=== PATIENT | female | born 2005 | race Caucasian/White ===

== ENCOUNTER 2024-12-19 09:54 | Outpatient (REF) | payer MEDICAID, SELFPAY ==
--- OUTSIDE RECORDS SUMMARY | 2024-12-19 09:00 | XMS_ITS | Encounter Summary ---
Author Organization [employer] [facility] Address [address] 7 [place] [address] Care Team Providers Care Motor Scooter Mechanic Name Role Phone Julisa Anne MD Primary Care Provider [phone]- [phone] Reason for Referral * Consultation (Routine) - Authorized Specialty Diagnoses / Procedures Referred By Brandin berry Referred To Contact Behavioral Health Diagnoses Anxiety Julisa Anne MD [address] [place] [address] Phone: tel: fax: Referral ID Status Reason Start Date Expiration Date Visits Requested Visits Authorized [id number] Authorized Specialty Services Required 12/19/2024 12/19/2025 1 1 * Consultation (Routine) - Authorized Specialty Diagnoses / Procedures Referred By Brandin berry Referred To Contact Optometry Diagnoses Congenital anomaly of brain (CMS/HCC) Julisa Anne MD [address] [place] [address] Phone: tel: fax: Ashly Rivera, OD [address] [place], [place] Phone: tel: fax: Referral ID Status Reason Start Date Expiration Date Visits Requested Visits Authorized [id number] Authorized Consult and Treat 12/19/2024 12/19/2025 1 1 Encounter Details Date Type Department Care Team (Late st Contact Info) Description 12/19/2024 9:00 AM EDT Office Visit [facility] [address] [place] [address] Julisa Anne MD [address] [place] [address] Hirsutism (Primary Dx); Anxiety; Congenital anomaly of brain (CMS/HCC); Encounter for immunization; Dietary counseling; Exercise counseling; Other specified health status; Seborrheic dermatitis, unspecified; Impacted cerumen of right ear; Routine screening for STI (sexually transmitted infection); Screening cholesterol level; Screening for diabetes mellitus Social History Tobacco Use Types Packs/Day Years Used Date Smoking Tobacco: Never Smokeless Tobacco: Never Tobacco Cessation:Counseling Given: Not Answered Depression Answer Date Recorded Patient Health Questionnaire-9 Score 24 12/19/2024 Patient Health Questionnaire-9 Score 24 12/19/2024 Last PHQ-9: Questionnaire Data Not on file 0 12/19/2024 Housing Stability Answer Date Recorded What is your housing situation today? I have zander smith 12/19/[address] you li ve. Do you have problems with any of the following? None of the above 12/19/2024 Food Insecurity Answer Date Recorded Within the past 12 months, y ou worried that your food would run out before you got money to buy more: Never True 12/19/2024 Within the past 12 months,th e food you bought just didn't last and you didn't have enough money to get more: Never True Transportation Answer Date Recorded In the past 12 months, has l ack of transportation kept you from medical appts, meetings, work or from getting things needed for daily living? No 12/19/2024 Utilities Answer Date Recorded In the past 12 months, has t he electric, gas, oil or water company threatened to shut off services in your home? No 12/19/2024 Depression Answer Date Recorded Patient Health Questionnaire-2 Score 6 12/19/2024 Internet Access Answer Date Recorded Internet Access Q1 Yes 12/19/2024 Internet Access Q2 Not on file 12/19/2024 Comments Unknown Intention Date Recorded No desire to become (finding) 0 12/19/2024 Sex and Gender Information Value Date Recorded Sex Assigned at Female 12/16/2023 11:54 AM EDT Legal Sex Female 11:53 AM EDT Gender Identity Female 12/12/2024 4:48 PM EDT Sexual Orientation Choose not to disclose 2024 4:48 PM EDT documented as of this encounter Last Filed Vital Signs Vital Sign Reading Time Taken Comments Blood Pressure 110/84 12/19/2024 8:55 AM EDT Pulse 115 12/19/2024 8:55 AM EDT Temperature 37.2 C (98.9 F) 12/19/2024 8:55 AM EDT Respiratory Rate 20 12/19/2024 8:55 AM EDT Oxygen Saturation 96% 12/19/2024 8:55 AM EDT Inhaled Oxygen Concentration - - Weight 78.6 kg (173 lb 3.2 oz) 12/19/2024 8:55 A M EDT Height 158.1 cm (5' 2.25 ) 12/19/2024 8:55 AM ED T Body Mass Index 31.42 12/19/2024 8:55 AM EDT documented in this encounter Functional Status * Over the past 2 weeks, how often have you been bothered by any of the following problems? Question Answer Date of Assessment Author Patient Health Questionnaire-2 Score 6 11/24 9:04 AM EANT Joy Mathew MA * Little interest or pleasure in doing things Answer Date of Assessment Author Nearly every day 12/19/2024 9:04 AM Symone Wilson MA * Feeling down, depressed, or hopeless Answer Date of Assessment Author Nearly every day 12/19/2024 9:04 AM Symone Wilson MA * Trouble falling or staying asleep, or sleeping too much Answer Date of Assessment Author Nearly every day 12/19/2024 9:04 AM Symone Wilson MA * Feeling tired or having little energy Answer Date of Assessment Author Nearly every day 12/19/2024 9:04 AM Symone Wilson MA * Poor appetite or overeating Answer Date of Assessment Author Several days 12/19/2024 9:04 AM EDT Thomas Mathew MA * Feeling bad about yourself - or that you are a failure or have let yourself or your family down Answer Date of Assessment Author Nearly every day 12/19/2024 9:04 AM Symone Wilson MA * Trouble concentrating on things, such as reading the newspaper or watching television Answer Date of Assessment Author Nearly every day 12/19/2024 9:04 AM Symone Wilson MA * Moving or speaking so slowly that other people could have noticed? Or the opposite - being so fidgety or restless that you have been moving around a lot more than usual. Answer Date of Assessment Author More than half the days 12/19/2024 9:04 AM Joy Burce MA * Thoughts that you would be better off or hurting yourself in some way Answer Date of Assessment Author Nearly every day 12/19/2024 9:04 AM Symone Wilson MA * Patient Health Questionnaire-9 Score Answer Date of Assessment Author 24 12/19/2024 9:04 AM Thomas Wilson MA * Over the last 2 weeks, how often have you been bothered by any of the following problems? Question Answer Date of Assessment Author Feeling nervous, anxious, or on edge 3 11/24 9:04 AM Joy Wilson MA Not being able to stop or co ntrol worrying 3 12/19/2024 9:04 AM Joy Wilson MA Worrying too much about diff erent things 3 12/19/2024 9:04 AM Joy Wilson MA Trouble relaxing 2 12/19/2024 9:04 AM Joy Bruce MA Being so restless that it is hard to sit still 3 12/19/2024 9:04 AM Joy Wilson MA Becoming easily annoyed or irritable 2 11/24 9:04 AM Joy Wilson MA Feeling afraid as if somethi ng awful might happen 3 12/19/2024 9:04 AM Joy Wilson MA NATALIA-7 Total Score 19 12/19/2024 9:04 AM Joy Wilson MA documented as of this encounter Progress Notes * Julisa Anne MD - 12/19/2024 9:00 AM EDT Km Busch is a 19 y.o. female who presents to the office today for a routine physical. Transferring from outside pediatrics. 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 Concerns: Facial hair: Shaves daily Anxiety: No formal dx but strong pos depression and anxiety screen, interested in prn medication and therapist Social History Tobacco: denied Drugs: none Alcohol: No Sexuality: Denies current sexual activity Activities: Enjoys Ren Potter,my Little Pipestem, Interview with a Vampire Menses: normal q month, no pain Suicide/Depression: The patient denies any present symptoms of depression or anxiety. Review of Systems Constitutional: Negative for fever. Respiratory: Negative for wheezing. Cardiovascular: Negative for chest pain. Gastrointestinal: Negative for abdominal pain. Current Medications[1] Allergies[2] Medical History[3] Surgical History[4] Family History[5] Objective Visit Vitals BP 110/84 (BP Location: Left arm, Patient Position: Sitting, BP Cuff Size: Adult) Pulse (!) 115 Temp 98.9 ??F (37.2 ??C) (Temporal) Resp 20 Ht 5' 2.25 (1.581 m) Wt 173 lb 3.2 oz (78.6 kg) SpO2 96% BMI 31.42 kg/m?? Smoking Status Never BSA 1.86 m?? Physical Exam Constitutional: Appearance: Normal appearance. HENT: Right Ear: There is impacted cerumen. Left Ear: Tympanic membrane normal. Cardiovascular: Rate and Rhythm: Normal rate and regular rhythm. Heart sounds: Normal heart sounds. Pulmonary: Effort: Pulmonary effort is normal. Breath sounds: Normal breath sounds. Abdominal: Tenderness: There is no abdominal tenderness. Musculoskeletal: Cervical back: Normal range of motion and neck supple. Skin: Comments: Erythematous plaque over right eye, flaky skin on scalp and forehead. Neurological: General: No focal deficit present. Mental Status: She is alert. Psychiatric: Behavior: Behavior normal. 19 y.o. female physical exam. Assessment & Plan Hirsutism Normal menses, no indication for pelvic US, will check labs below. Discussed electrolysis and laseras options. Consider spironolactone after labs. Orders: Testosterone, Total, males (Adult), IA; Future DHEA Sulfate; Future Anxiety Referral to N, prn hydroxyzine Orders: Referral to Behavioral Health; Future hydrOXYzine HCl (Atarax) 25 MG tablet; Take 1 tablet (25 mg) by mouth if needed in the morning, at noon, and at bedtime for itching. Congenital anomaly of brain (CMS/HCC) Orders: TSH with Reflex to Free T4; Future CBC auto differential; Future Vitamin D, 25-Hydroxy, Total, Immunoassay; Future Referral to [facility] Eye Care (Developmental Disability Exam); Future Encounter for immunization Orders: TDAP VACCINE 7 yrs + Dietary counseling Dietary Recommendations: Fruits, vegetables, whole grains, protein foods, and fat-free or low-fat dairy products are healthychoices. Eat different types of protein foods in your diet. This can include seafood, lean meats, poultry, beans, peas, lentils, nuts, seeds, soy products, and eggs. Limit foods and beverages higher in added sugars, saturated fat, and sodium. Exercise Recommendations: At least 150 minutes of moderate-intensity physical activity per week, or an equivalent combinationof moderate- and vigorous-intensity activity Exercise counseling Other specified health status -next comprehensive annual evaluation due after 12/19/25 -eye care facilitated by [facility] -[facility] -mercedes care proxy filed Seborrheic dermatitis, unspecified Trial of selenium sulfide shampoo OTC Impacted cerumen of right ear Will try debrox gtt Orders: carbamide peroxide (Debrox) 6.5 % otic solution; Administer 5-10 drops into affected ear(s) 2 timesdaily for 4 days. Routine screening for STI (sexually transmitted infection) Orders: Chlamydia/N. Gonorrhoeae, PCR, Urine HIV-1/2 Antigen and Antibodies, Fourth Generation, with Reflexes; Future Hepatitis C Antibody with Reflex to HCV, RNA, Quantitative, Real-Time PCR; Future Screening cholesterol level Orders: Hepatic Function Panel; Future Lipid Panel, Standard; Future Screening for diabetes mellitus Orders: Basic Metabolic Panel; Future Physical exam -Normal growth and development. -Anticipatory guidance discussed. -Preventative care / harm reduction discussed. Follow up in about 2 months (around 02/18/2025). [1] Current Outpatient Medications: carbamide peroxide (Debrox) 6.5 % otic solution, Administer 5-10 drops into affected ear(s) 2 timesdaily for 4 days., Disp: 30 mL, Rfl: 0 hydrOXYzine HCl (Atarax) 25 MG tablet, Take 1 tablet (25 mg) by mouth if needed in the morning, at noon, and at bedtime for itching., Disp: 90 tablet, Rfl: 0 [2] No Known Allergies [3] Past Medical History: Diagnosis Date ADD (attention deficit disorder) [4] Past Surgical History: Procedure Laterality Date CSF SHUNT age 6 months x 2 for extenral hydrocephalus [5] Family History Problem Relation Name Age of Onset Diabetes Mother Hypertension Mother documented in this encounter Miscellaneous Notes * Assessment & Plan Note - Julisa Anne MD - 12/19/2024 9:00 AM EDT Associated Problem(s): Congenital anomaly of brain (CMS/HCC) Orders: TSH with Reflex to Free T4; Future CBC auto differential; Future Vitamin D, 25-Hydroxy, Total, Immunoassay; Future Referral to [facility] Eye Care (Developmental Disability Exam); Future * Assessment & Plan Note - Julisa Anne MD - 12/19/2024 9:00 AM EDT Associated Problem(s): Other specified health status -next comprehensive annual evaluation due after 12/19/25 -eye care facilitated by [facility] -dental home is [facility] -mercedes care proxy filed * Addendum Note - Julisa Anne MD - 12/19/2024 9:00 AM EDTAddended by: JULISA ANNE on: 12/19/2024 09:45 AM Modules accepted: Orders documented in this encounter Plan of Treatment Upcoming Encounters Date Type Department Care Team (Late st Contact Info) Description 02/20/2025 10:15 AM EDT Office Visit [facility] [address] [place] [id number] Julisa Anne MD [address] [place] [address] Scheduled Orders Name Type Priority Associated Diagnoses Orde r Schedule Hepatic Function Panel Lab Routine Screening cholesterol level Expected: 12/19/2024, Expires: 12/19/2025 Lipid Panel, Standard Lab Routine Screening cholesterol level Expected: 12/19/2024, Expires: 12/19/2025 Basic Metabolic Panel Lab Routine Screening for diabetes mellitus Expected: 12/19/2024, Expires: 12/19/2025 TSH with Reflex to Free T4 Lab Routine Congenital anomaly of brain ([facility]/HCC) Expected: 12/19/2024 (Approximate), Expires: 12/19/2025 CBC auto differential Lab Routine Congenital anomaly of brain ([facility]) Expected: 12/19/2024, Expires: 12/19/2025 Vitamin D, 25-Hydroxy, Total, Immunoassay Lab Routine Congenital anomaly of brain ([facility]) Expected: 12/19/2024 (Approximate), Expires: 12/19/2025 HIV-1/2 Antigen and Antibodies, Fourth Generation, with Reflexes Lab Routine Routine screening for STI (sexually transmitted infection) Expected: 12/19/2024 (Approximate), Expires: 12/19/2025 Hepatitis C Antibody with Reflex to HCV, RNA, Quantitative, Real-Time PCR Lab Routine Routine screening for STI (sexually transmitted infection) Expected: 12/19/2024 (Approximate), Expires: 12/19/2025 Testosterone, Total, males (Adult), IA Lab Routine Hirsutism Expected: 12/19/2024, Expires: 12/19/2025 DHEA Sulfate Lab Routine Hirsutism Expected: 12/19/2024 (Approximate), Expires: 12/19/2025 Chlamydia/N. Gonorrhoeae, PCR, Urine Lab Routine Routine screening for STI (sexually transmitted infection) Ordered: 12/19/2024 Scheduled Referrals Name Type Priority Associated Diagnoses Order Schedule Referral to [facility] Eye Care (Developmental Disability Exam) Outpatient Referral Routine Congenital anomaly of brain ([facility]/HCC) Expected: 12/19/2024 (Approximate), Expires: 12/19/2025 Referral to Behavioral Health Outpatient Referral Routine Anxiety Expected: 12/19/2024 (Approximate), Expires: 06/18/2026 documented as of this encounter Visit Diagnoses Diagnosis Hirsutism- Primary Anxiety Anxiety state, unspecified 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, spinal cord, and nervous system Encounter for immunization Dietary counseling Dietary surveillance and counseling Exercise counseling Other specified health status Seborrheic dermatitis, unspecified Impacted cerumen of right ear Impacted cerumen Routine screening for STI (sexually transmitted infection) Screening examination for venereal disease Screening cholesterol level Screening for lipoid disorders Screening for diabetes mellitus documented in this encounter Additional Health Concerns Assessment Noted Time PHQ-9 Depression Total Score: 24 025 9:04 AM EDT documented as of this encounter Care Teams Motor Scooter Mechanic Relationship Specialty Start Date End Date Julisa Anne MD [address] [place] [id number] PCP - General Family Medicine 12/19/24 Dr. Silverio [facility] Pediatric Neurosurgery 12/19/24 documented as of this encounter
--- OUTSIDE RECORDS SUMMARY | 2024-12-19 10:38 | XMS_ITS | Clinical Summary ---
Author Organization [employer] Address [address] [place] [address] Care Team Providers Care Wellness Educator Name Role Phone Julisa Hurt MD Primary Care Provider +1- [phone] Allergies No known active allergies Medications hydrOXYzine HCl (Atarax) 25 MG tabletIndicatio ns:Anxiety Take 1 tablet (25 mg) by mouth if needed in the morning, at noon, and at bedtime for itching. 90 tablet 5 01/19/20 25 Active carbamide peroxide (Debrox) 6.5 % otic solutionIndicat ions:Impacted cerumen of right ear Administer 5-10 drops into affected ear(s) 2 times daily for 4 days. 30 mL 5 12/24/19 25 Active Active Problems Problem Noted Date Diagnosed Date Other specified health status 12/19/2024 Overview (12/19/2024): -next comprehensive annual evaluation due after 12/19/25 -eye care facilitated by [facility] -dental home is [facility] -mercedes care proxy filed Assessment & Plan (12/19/2024 9:43 AM EDT): -next comprehensive annual evaluation due after 12/19/25 -eye care facilitated by [facility] -dental home is [facility] -mercedes care proxy filed Congenital anomaly of brain 02/07/2019 Assessment & Plan (12/19/2024 9:43 AM EDT): Orders: TSH with Reflex to Free T4; Future CBC auto differential; Future Vitamin D, 25-Hydroxy, Total, Immunoassay; Future Referral to [facility] Eye Care (Developmental Disability Exam); Future 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 Encounters Date Type Department Care Team Description 12/19/2024 9:00 AM EDT Office Visit [address] [address] Julisa Hurt MD Hirsutism (Primary Dx); Anxiety; Congenital anomaly of brain (CMS/HCC); Encounter for immunization; Dietary counseling; Exercise counseling; Other specified health status; Seborrheic dermatitis, unspecified; Impacted cerumen of right ear; Routine screening for STI (sexually transmitted infection); Screening cholesterol level; Screening for diabetes mellitus 12/19/2024 Travel 12/18/2024 Travel 12/18/[address] [address] Altagracia Santiago [place] chart prep 12/12/2024 Patient Outreach [address] [address] Julisa Hurt MD Pre-visit Planning (Pre-visit planning - LVM ) from Last 3 Months Immunizations Immunization Administration Dates Next Due DTaP, Unspecified 04/03/2008, 5,2003,06/12,2003 Hep A, ped/adol, 2 dose 12/24/2020,12/14/2019 Hep B, Unspecified 2003,2003, 003 HiB, unspecified 05/11/2004, 4,2003,04/12 IPV 04/03/2008, 5,2003,04/12 Influenza injectable quadriv alent preservative free 12/24/2020,04/06/2020,06/27/2017,06/30,01/09/2013 Influenza, IIV3, injectable 06/07/2011, 0 Influenza, Unspecified 04/03/2008,2006,04/13/2006,02/23 MMR 04/03/2007,05/11/2004 Meningococcal B, Omv 12/24/2020 Meningococcal MCV4P ACYW-135 12/14/2019,06/28/19 15 Pneumococcal Conjugate PCV 7 02/24/2004, 2003,2003,04/12 Tdap 12/19/2024,08/15/2013 Varicella 04/03/2007,02/24/2004 Family History Medical History Relation Name Comments Diabetes Mother Hypertension Mother Relation Name Status Comments Mother Social History Tobacco Use Types Packs/Day Years [...] not to disclose 2024 4:48 PM EDT Last Filed Vital Signs Vital Sign Reading [...] Mass Index 31.42 12/19/2024 8:55 AM EDT Plan of Treatment Upcoming Encounters Date Type Department Care Team (Late st Contact Info) Description 02/20/2025 10:15 AM EDT Office Visit [facility] [address] [place] [address] Julisa Hurt MD [address] [place] [address] Health Maintenance Due Date Last Done Comments Chlamydia and Gonorrhea Screening 2003 HIV Screening 2003 Alcohol/Substance Use Screening 2015 Hepatitis C Screening 2021 Meningococcal B Vaccine (2 of 2 - Bexsero SCDM 2-dose series) 06/23/2021 12/24/2020 COVID-19 Vaccine ( season) 2023 04/15/2021, 09/17/2020, 08/27/2020 Pap Smear 02/06/2024 Influenza Vaccine (#1) 2024 , 04/06/2020, 06/27/2017, Additional history exists Depression Monitoring 06/21/2025 12/19/2024, 025 Disability Screening 12/19/2025 12/19/2024 Family Planning (PISQ) 12/19/2025 12/19/2024 HPV Vaccines (1 - 3-dose series) 12/19/2025 Postponed from 2018 (Patient Refused) SDOH Screening 12/19/2025 12/19/2024 Tobacco Screening 12/19/2025 12/19/2024 DTaP/Tdap/Td Vaccines (8 - Td or Tdap) 12/19/2034 12/19/2024, 08/15/2013, 04/03/2008, Additional history exists Zoster Vaccines (1 of 2) 2053 RSV Patients and Patients Aged 60 years or older (1 - 1-dose 75+ series) 2078 Hepatitis B Vaccines Completed 2003, 2003, 2003 Pneumococcal Vaccine: Pediatrics (0 to 5 Years) and At-Risk Patients (6 to 49) Years Aged Out 02/24/2004, 2003, 2003, Additional history exists No longer eligible based on patient's age to complete this topic HIB Vaccines Completed 05/11/2004, 07/24, 2003, Additional history exists IPV Vaccines Completed 04/03/2008, 07/24, 2003, Additional history exists Meningococcal Vaccine Completed 12/14/2019, 015 Hepatitis A Vaccines Completed 12/24/2020, 12/14/19 20 RSV under 20 months Aged Out No longe r eligible based on patient's age to complete this topic Rotavirus Vaccines Aged Out No longer eligible based on patient's age to complete this topic Insurance [facility] C3 Care Teams Wellness Educator Relationship Specialty Start Date End Date Rush, MD Julisa [address] [place] [address] PCP - General Family Medicine 12/19/24 Dr. Silverio James [facility] sees at [facility] Pediatric Neurosurgery 12/19/24
--- OUTSIDE RECORDS SUMMARY | 2024-12-19 10:38 | XMS_ITS | Encounter Summary ---
Author Organization [employer] Address [address] [place] [address] Care Team Providers Care Calibration Laboratory Technician Name Role Phone Unavailable Primary Care Provider Unavailabl e Reason for Visit * Reason Onset Date Comments chart prep 12/18/2024 Encounter Details Date Type Department Care Team (Late st Contact Info) Description 12/18/2024 Telephone [facility] [address] [place] [address] Altagracia Santiago MA chart prep Social History Tobacco Use Types Packs/Day Years Used Date Smoking Tobacco: Never Assessed Depression Answer Date Recorded Patient Health Questionnaire-9 [...] Q2 Not on file 12/19/2024 Comments Unknown Sex and Gender Information Value Date Recorded Sex Assigned at Female 12/16/2023 11:54 AM EDT Legal Sex Female 11:53 AM EDT Gender Identity Female 12/12/2024 4:48 PM EDT Sexual Orientation Choose not to disclose 2024 4:48 PM EDT documented as of this encounter Miscellaneous Notes * Telephone Encounter - Altagracia Santiago MA - 12/18/2024 8:58 AM EDT Chart Prep Labs: not applicable Images: not applicable Screenings: PAP Vaccines due: Covid Due, Tdap Due, and MCV4 Due Referrals: Not Applicable Overdue care gaps: Sbirt, SDOH, PQ9, GAD7, Disability , and Oral Health \ documented in this encounter Plan of Treatment Upcoming Encounters Date Type Department Care Team (Late st Contact Info) Description 02/20/2025 10:15 AM EDT Office Visit [facility] [address] [place] [address] Julisa Hurt MD [address] [place] [address] documented as of this encounter Visit Diagnoses Not on filedocumented in this encounter
--- OUTSIDE RECORDS SUMMARY | 2024-12-19 10:38 | XMS_ITS | Encounter Summary ---
Author Organization [employer] Address [address] [place] [address] Care Team Providers Care Director Internal Audit Name Role Phone Julisa Hurt MD Primary Care Provider [phone]- [phone] Encounter Details Date Type Department Care Team (Latest Contact Info) Description 12/19/2024 Travel Social History Tobacco Use Types Packs/Day Years Used Date Smoking Tobacco: Never Smokeless Tobacco: Never Depression Answer Date Recorded Patient Health Questionnaire-9 [...] PM EDT documented as of this encounter Functional Status * Over the past 2 weeks, how often have you been bothered by any of the following problems? Question Answer Date of Assessment Author Patient Health Questionnaire-2 Score 6 11/24 9:04 AM Joy Wilson MA * Little interest or pleasure in [...] Assessment Author Several days 12/19/2024 9:04 AM Thomas Wilson MA * Feeling bad about yourself - [...] half the days 12/19/2024 9:04 AM Joy Bruce MA * Thoughts that you would be [...] or on edge 3 11/24 9:04 AM EDT Joy Mathew MA Not being able to stop or co ntrol worrying 3 12/19/2024 9:04 AM Joy Wilson MA Worrying too much about diff erent things 3 12/19/2024 9:04 AM Joy Wilson MA Trouble relaxing 2 12/19/2024 9:04 AM EDT Joy Knox MA Being so restless that it is hard to sit still 3 12/19/2024 9:04 AM Joy Wilson MA Becoming easily annoyed or irritable 2 11/24 9:04 AM Joy Wilson MA Feeling afraid as if somethi ng awful might happen 3 12/19/2024 9:04 AM Joy Wilson MA NATALIA-7 Total Score 19 12/19/2024 9:04 AM Joy Wilson MA documented as of this encounter Plan of Treatment Upcoming Encounters Date Type Department Care Team (Late st Contact Info) Description 02/20/2025 10:15 AM EDT Office Visit [facility] [address] [place] [address] Julisa Hurt MD [address] [place] [address] documented as of this encounter Visit Diagnoses Not on filedocumented in this encounter Additional Health Concerns Assessment Noted Time PHQ-9 Depression Total Score: 24 025 9:04 AM EDT documented as of this encounter Care Teams Director Internal Audit Relationship Specialty Start Date End Date Julisa Hurt MD [address] [place] [address] PCP - General Family Medicine 12/19/24 Dr. Silverio James Children[facility] sees at [facility] Pediatric Neurosurgery 12/19/24 documented as of this encounter
--- OUTSIDE RECORDS SUMMARY | 2024-12-19 10:38 | XMS_ITS ---
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
--- OUTSIDE RECORDS SUMMARY | 2024-12-19 10:38 | XMS_ITS | Encounter Summary ---
Author Organization [employer] Address [address] [place] [address] Care Team Providers Care Dairy Farm Operator Name Role Phone Unavailable Primary Care Provider Unavailabl e Encounter Details Date Type Department Care Team (Latest Contact Info) Description 12/18/2024 Travel Social History Tobacco Use Types Packs/Day [...] PM EDT documented as of this encounter Plan of Treatment Upcoming Encounters Date Type Department Care Team (Late st Contact Info) Description 02/20/2025 10:15 AM EDT Office Visit [facility] [address] [place] [address] Julisa Hurt MD [address] [place] [address] documented as of this encounter Visit Diagnoses Not on filedocumented in this encounter
[2024-12-19 11:12] LABS: MANUAL DIFF FLAG NO
[2024-12-19 11:17] LABS: Hematocrit 37.9 % (37.0-47.0); Hemoglobin 12.6 g/dl (12.0-16.0); Imm Gran Abs Auto 0.02 X10*3/uL (0.00-0.03); Imm Gran Pct Auto 0.3 % (0.0-0.4); Lymphocytes Absolute Auto 2.5 X10*3/uL (1.2-4.9); Mean Corpuscular HGB Conc 33.2 g/dl (31.0-35.0); Mean Corpuscular Hemoglobin 29.1 pg (27.0-33.0); Mean Corpuscular Volume 87.5 fL (80.0-98.0); NRBC Abs Auto 0.000 X10*3/uL (0.0-0.012); NRBC Pct Auto 0.0 /100WBC (0.0-0.2); Platelet Count 243 X10*3/uL (160-400); Red Blood Count 4.33 X10*6/uL (4.20-5.50); White Blood Count 8.0 X10*3/uL (4.8-10.8)
[2024-12-19 11:55] LABS: Alanine Aminotransferase 27 U/L (0-31); Albumin Level 4.2 g/dL (3.5-5.0); Alkaline Phosphatase 63 U/L (39-117); Anion Gap 11 (12-20); Aspartate Amino Transferase 32 U/L (5-31); Blood Urea Nitrogen 11 mg/dL (9-16); Calcium 9.3 mg/dL (8.4-10.2); Carbon Dioxide 25 mmol/L (22-29); Chloride 106 mmol/L (96-108); Cholesterol 191 mg/dL (<200); Estimated Glomerular Filt Rate > 60; HDL Cholesterol 58 mg/dL (>40); Potassium 3.8 mmol/L (3.3-5.1); Sodium 138 mmol/L (135-145); Total Protein 7.0 g/dL (6.5-8.0); Triglycerides 55 mg/dL (<150)
[2024-12-19 12:52] LABS: CT PCR Urine NOT DETECTED (Not Detect.); NG PCR Urine NOT DETECTED (Not Detect.)
[2024-12-20 04:01] LABS: HIV Num 1 0.06 S/CO (0.00-0.99); ~HepC Num1 0.12 S/CO (0.00-0.79); ~Hepatitis C Antibody Nonreactive (Nonreactive)
== END 2024-12-19 09:55 | disposition home or self-care (01) ==
LOC: HO.HHCL 09:54
PROVIDERS: PCP Family Medicine; Visit Provider Family Medicine
DX: Z11.3 Encounter for screening for infections with a predominantly sexual mode of transmission (principal); Z11.4 Encounter for screening for human immunodeficiency virus [HIV]; Z13.220 Encounter for screening for lipoid disorders; Z13.1 Encounter for screening for diabetes mellitus; Z11.59 Encounter for screening for other viral diseases; Z11.8 Encounter for screening for other infectious and parasitic diseases; Q04.9 Congenital malformation of brain, unspecified; L68.0 Hirsutism
CPT/HCPCS: 80048; 80061; 80076; 82306; 82627; 84403; 84443; 85025; 86803; 87389; 87491; 87591

== ENCOUNTER 2025-04-02 14:55 | Outpatient (REF) | payer MEDICAID, SELFPAY ==
[2025-04-02 16:50] LABS: Alanine Aminotransferase 18 U/L (0-31); Albumin Level 4.3 g/dL (3.5-5.0); Alkaline Phosphatase 80 U/L (39-117); Aspartate Amino Transferase 27 U/L (5-31); Total Protein 7.2 g/dL (6.5-8.0)
[2025-04-02 17:22] LABS: NT Pro B Type Natriuretic Pept < 15.8 pg/mL (<300)
--- OUTSIDE RECORDS SUMMARY | 2025-04-02 21:11 | XMS_ITS | Clinical Summary ---
Author Organization [employer] Address [address] [place] [address] Care Team Providers Care Paper Cutter Name Role Phone Julisa Hurt MD Primary Care Provider +1- [phone] Allergies No known active allergies Medications * This document contains information received from the source organization and may not represent a complete record from that organization. hydrOXYzine HCl (Atarax) 25 MG tabletIndication s:Anxiety Take 1 tablet (25 mg) by mouth if needed in the morning, at noon, and at bedtime for itching. 90 tablet 5 Active Melatonin 1 MG chewable tabletIndication s:Insomnia, unspecified type 1 tab po at bedtime prn insomnia 30 tablet 3 5 Active spironolactone (Aldactone) 25 MG tabletIndication s:Hirsutism Take 1 tablet (25 mg) by mouth Once per day. 30 tablet 11 5 02/26/20 26 Active Active Problems Problem Noted Date Diagnosed Date Anxiety 02/25/2025 Assessment & Plan (02/25/2025 11:43 AM EST): - Anxiety and depression currently managed with hydroxyzine; patient may benefit from additional support. - Recommended referral to therapist and psychiatrist. Provided information on self-referral and resources such as Psychology Today. Arranged for therapist to provide contact information during visit Moderate episode of recurren t major depressive disorder (CMS/HCC) 02/25/2025 Assessment & Plan (02/25/2025 4:33 PM EST): During IBH Consult Jo-Ann presenting with depressed mood, hopelessness, irritable mood, loss of interests/pleasure , sense of isolation/loneliness , isolating, worthlessness, difficulty concentrating and excessive worry/anxiety, difficulty controlling worry, anxiety/worry associated to restlessness and/or feeling keyed-up/On edge , easily fatigued , difficulty concentrating and/or mind going blank , and irritability, Fear , and sense of dread ; for a period of 18+ mo, for most or all symptoms in the context of lack of social support and OP services. Pt reports her anxiety and depression continue to be present and stopping her from enjoying life. She describes sxs as baseline. Never had a therapist in the past and was prescribed medication by her PCP for anxiety. Explored grounding techniques (see intervention section) to apply when feeling anxiety sxs. Pt feels supported at home. NATAILA (generalized anxiety disorder) 12/27/2024 Assessment & Plan (02/25/2025 4:33 PM EST): During IBH Consult Jo-Ann presenting with depressed mood, hopelessness, irritable mood, loss of interests/pleasure , sense of isolation/loneliness , isolating, worthlessness, difficulty concentrating and excessive worry/anxiety, difficulty controlling worry, anxiety/worry associated to restlessness and/or feeling keyed-up/On edge , easily fatigued , difficulty concentrating and/or mind going blank , and irritability, Fear , and sense of dread ; for a period of 18+ mo, for most or all symptoms in the context of lack of social support and OP services. Pt reports her anxiety and depression continue to be present and stopping her from enjoying life. She describes sxs as baseline. Never had a therapist in the past and was prescribed medication by her PCP for anxiety. Explored grounding techniques (see intervention section) to apply when feeling anxiety sxs. Pt feels supported at home. Other specified health status 12/19/2024 Overview (12/19/2024): -next comprehensive annual evaluation due after 12/19/25 -eye care facilitated by [facility] -dental home is [facility] -mercedes care proxy filed Assessment & Plan (12/19/2024 9:43 AM EDT): -next comprehensive annual evaluation due after 12/19/25 -eye care facilitated by [facility] -dental home is [facility] -mercedes care proxy filed Congenital anomaly of brain ([facility]) 02/07/2019 Assessment & Plan (12/19/2024 9:43 AM EDT): Orders: TSH with Reflex to Free T4; Future CBC auto differential; Future Vitamin D, 25-Hydroxy, Total, Immunoassay; Future Referral to [facility] Eye Care (Developmental Disability Exam); Future 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 Date Type Department Care Team Description 04/02/2025 Orders Only [facility]INE [address] [place] [phone] Julisa Hurt MD 02/25/2025 10:30 AM EST Office Visit [facility]INE [address] [place] [phone] Julisa Hurt MD Insomnia, unspecified type (Primary Dx); Hirsutism; Anxiety; Encounter for immunization; Encounter for vaccination 02/25/2025 Travel 02/24/2025 Travel 02/22/[address] [phone] Julisa Hurt MD chartprep from Last 3 Months Immunizations Immunization Administration Dates Next Due DTaP, Unspecified 04/03/2008, 5,2003,06/12,2003 Hep A, ped/adol, 2 dose 12/24/2020,12/14/2019 Hep B, Unspecified 2003,2003, 003 HiB, unspecified 05/11/2004, 4,2003,04/12 IPV 04/03/2008, 5,2003,04/12 Influenza injectable quadriv alent preservative free 12/24/2020,04/06/2020,06/27/2017,06/30,01/09/2013 Influenza, IIV3, injectable 06/07/2011, 0 Influenza, Unspecified 04/03/2008,2006,04/13/2006,02/23 Influenza, seasonal, injecta ble, preservative free 02/25/2025 MMR 04/03/2007,05/11/2004 Meningococcal B, Omv 12/24/2020 Meningococcal MCV4P [id number]-135 12/14/2019,06/28/19 15 Pfizer Covid-19 Vaccine 12+ 02/25/2025 Pneumococcal Conjugate PCV 7 02/24/2004, 2003,2003,04/12 Tdap 12/19/2024,08/15/2013 Varicella 04/03/2007,02/24/2004 Family History Medical History Relation Name Comments Diabetes Mother Hypertension Mother Relation Name Status Comments Mother Social History Tobacco Use Types Packs/Day Years Used Date Smoking Tobacco: Never Smokeless Tobacco: Never Tobacco Cessation:Counseling Given: Not Answered Depression Answer Date Recorded Patient Health Questionnaire-9 Score 12 02/25/2025 Patient Health Questionnaire-9 Score 12 02/25/2025 Last PHQ-9: Questionnaire Data Not on file 1 04/27/2024 Housing Stability Answer Date Recorded What is your housing situation today? I have zandershaun smith 12/19/[address] you [...] Date Recorded Patient Health Questionnaire-2 Score 6 02/25/2025 Internet Access Answer Date Recorded Internet Access [...] Sign Reading Time Taken Comments Blood Pressure 126/84 02/25/2025 10:34 AM EST Pulse 98 02/25/2025 10:34 AM EST Temperature 37.1 C (98.8 F) 02/25/2025 10:34 AM EST Respiratory Rate 20 02/25/2025 10:34 AM EST Oxygen Saturation 98% 02/25/2025 10:34 AM EST Inhaled Oxygen Concentration - - Weight 82.3 kg (181 lb 6.4 oz) 02/25/2025 10:34 AM EST Height 158.1 cm (5' 2.25 ) 12/19/2024 8:55 AM ED T Body Mass Index 32.91 12/19/2024 8:55 AM EDT Plan of Treatment Health Maintenance Due Date Last Done Comments Meningococcal B Vaccine (2 of 2 - Bexsero SCDM 2-dose series) 06/23/2021 12/24/2020 Pap Smear 02/06/2024 Depression Monitoring 08/25/2025 02/25/2025, 025 Chlamydia and Gonorrhea Screening 12/19/2025 12/19/2024 Disability Screening 12/19/2025 12/19/2024 Family Planning (PISQ) 12/19/2025 12/19/2024 HPV Vaccines (1 - 3-dose series) 12/19/2025 Postponed from 2018 (Patient Refused) SDOH Screening 12/19/2025 12/19/2024 Alcohol/Substance Use Screening 02/25/2026 02/25/2025 Tobacco Screening 02/25/2026 02/25/2025 DTaP/Tdap/Td Vaccines (8 - Td or Tdap) [...] Hepatitis A Vaccines Completed 12/24/2020, 12/14/19 20 HIV Screening Completed 12/19/2024 Hepatitis C Screening Completed 12/19/2024 COVID-19 Vaccine Completed 02/25/2025, , 09/17/2020, Additional history exists Influenza Vaccine Completed 02/25/2025, , 04/06/2020, Additional history exists RSV under 20 months Aged Out No longe r eligible based on patient's age to complete this topic Rotavirus Vaccines Aged Out No longer eligible based on patient's age to complete this topic Procedures Procedure Name Priority Date/Time Associated Diagnosis Comments NT-PROBNP Routine 04/02/2025 3:21 PM EST HEPATIC FUNCTION PANEL Routine 04/02/2025 3:21 PM EST Insomnia, unspecified type HEPATITIS C AB W/REFL TO HCV RNA, QN, PCR Routine 12/19/2024 10:05 AM EDT Routine screening for STI (sexually transmitted infection) HIV 1/2 ANTIGEN/ANTIBODY, FOURTH GENERATION W/RFL Routine 12/19/2024 10:05 AM EDT Routine screening for STI (sexually transmitted infection) CHLAMYDIA/TRICHOMON /NEISSERIA GONORRHOEAE, PCR, URINE Routine 12/19/2024 10:05 AM EDT Routine screening for STI (sexually transmitted infection) from Last 3 Months or Most Recently Relevant to Health Maintenance Results * NT-proBNP (04/02/2025 3:21 PM EST) NT-proBNP <15.8 <300 pg/mL [facility] Comment:Reference Range:Age Group (years) NT-proBNP (pg/ml) InterpretationAll <300 Negative: HF unlikelyFor patients presenting to the ED with clinical suspicion ofnew onset or worsening HF, see below:18 to <50 >299.9 to <450.0 Grayzone: [id number] to 75 >299.9 to <900.0 other causes of>75 >299.9 to <1800.0 NT-proBNP [id number] to <50 >449.9 Positive: HF [id number] >899.9>75 >1799.9Note: Elevated NT-proBNP levels should be interpreted inthe context of other clinical information. 04/02/2025 3:21 PM EST 04/02/2025 4:11 PM EST us Julisa Hurt MD LAB BLOOD ORDERABLES Final Result [facility] [address] [place] [phone] * Hepatic Function Panel (04/02/2025 3:21 PM EST) Bilirubin, Total 0.3 0.0 - 1.0 mg/dL [facility] Bilirubin, Direct 0.1 0.0 - 0.5 mg/dL [facility] Aspartate Amino Transferase 27 5 - 31 U/L [facility] Alanine Aminotransferase 18 0 - 31 U/L [facility] Total Protein 7.2 6.5 - 8.0 g/dL [facility] Albumin Level 4.3 3.5 - 5.0 g/dL [facility] Alkaline Phosphatase 80 39 - 117 U/L [facility] Blood Venous blood specimen / Unknown 04/02/2025 3:21 PM EST 04/02/2025 4:11 PM EST us Julisa Hurt MD LAB BLOOD ORDERABLES Final Result [facility] [address] [place] [phone] * Chlamydia/N. Gonorrhoeae, PCR, Urine (12/19/2024 10:05 AM EDT) CT PCR, Urine NOT DETECTED Not Detect. [facility] Comment:A not detected test result does not exclude the possibilityof infection because test results can be affected byimproper specimen collection, concurrent antibiotic therapy,or the number of organisms in the specimen which may bebelow the sensitivity of the test. As with many diagnostictests, results from the Xpert CT/NG assay should beinterpreted in conjunction with other laboratory andclinical data available to the clinician.The Xpert CT/NG assay should not be used for the evaluationof suspected sexual abuse or for other medico-legalindications. Additional testing is recommended in anycircumstance when false positive or false negative resultscould lead to adverse medical, social or psychologicalconsequences. NG PCR, Urine NOT DETECTED Not Detect. [facility] Comment:A not detected test result does not exclude the possibilityof infection because test results can be affected byimproper specimen collection, concurrent antibiotic therapy,or the number of organisms in the specimen which may bebelow the sensitivity of the test. As with many diagnostictests, results from the Xpert CT/NG assay should beinterpreted in conjunction with other laboratory andclinical data available to the clinician.The Xpert CT/NG assay should not be used for the evaluationof suspected sexual abuse or for other medico-legalindications. Additional testing is recommended in anycircumstance when false positive or false negative resultscould lead to adverse medical, social or psychologicalconsequences. Urine (Urine, Random) 12/19/2024 10:05 AM EDT 12/19/2024 11:01 AM EDT Julisa Hurt MD LAB URINE ORDERABLES Final Result Performing Organization Address City/[facility]/ZIP Co de Phone Number [facility] [address] [place] [address] [phone] * Hepatitis C Antibody with Reflex to HCV, RNA, Quantitative, Real-Time PCR (12/19/2024 10:05 AM EDT) Hepatitis C Antibody Nonreactive Nonreactive [facility] Comment:Antibodies to HCV no t detected; does not exclude early acuteHCV infection. Blood Venous blood specimen / Unknown 12/19/2024 10:05 AM EDT 12/19/2024 11:02 AM EDT Julisa Hurt MD LAB BLOOD ORDERABLES Final Result Performing Organization Address City/[facility]/ZIP Co de Phone Number [facility] [address] [place] [phone] * HIV-1/2 Antigen and Antibodies, Fourth Generation, with Reflexes (12/19/2024 10:05 AM EDT) HIV AB/AG Nonreactive Nonreactive [facility] Comment:HIV-1 p24 Ag and/or HIV-1/HIV-2 Ab not detected.A test result that is nonreactive does not exclude thepossibility of exposure to or infection with HIV-1 and/orHIV-2. Nonreactive results in this assay for individualswith prior exposure to HIV-1 and/or HIV-2 may be due toantigen and antibody levels that are below the limit ofdetection of this assay.The [employer] HIV Ag/Ab Combo assay result andsupplemental assay results should be interpreted inconjunction with the patient's clinical presentation,history and other laboratory results. If the results areinconsistent with clinical evidence, additional testing issuggested to confirm the result. Blood Venous blood specimen / Unknown 12/19/2024 10:05 AM EDT 12/19/2024 11:02 AM EDT Julisa Hurt MD LAB BLOOD ORDERABLES Final Result [facility] [address] [place] [phone] [phone] from Last 3 Months or Most Recently Relevant to Health Maintenance Insurance [facility] C3 Advance Directives Documents on File Type Date Recorded Patient Multi Share Program Coordinator Expl anation Advance Directives and Living Will 12/20/2024 Health Care Proxy 12/19/24 Care Teams Paper Cutter Relationship Specialty Start Date End Date Julisa Hurt MD [address] [place] [phone] PCP - General Family Medicine 12/19/24 Dr. Silverio James Childrens sees at [facility] Pediatric Neurosurgery 12/19/24
--- OUTSIDE RECORDS SUMMARY | 2025-04-02 21:11 | XMS_ITS | Encounter Summary ---
Author Organization [employer] Address [address] [place] [address] Care Team Providers Care Global Sales Director Name Role Phone Julisa Hurt MD Primary Care Provider [phone]- [phone] Encounter Details Date Type Department Care Team (Late st Contact Info) Description 04/02/2025 Orders Only [facility] [address] [place], [place] [phone] Julisa Hurt MD [address] [place], [place] [phone] Social History Tobacco Use Types Packs/Day Years [...] as of this encounter Plan of Treatment Not on file documented as of this encounter Procedures Procedure Name Priority Date/Time Associated Diagnosis Comments NT-PROBNP Routine 04/02/2025 3:21 PM EST documented in this encounter Results * NT-proBNP (04/02/2025 3:21 PM EST) NT-proBNP <15.8 <300 pg/mL [facility] Comment:Reference Range:Age Group (years) NT-proBNP (pg/ml) InterpretationAll <300 Negative: HF unlikelyFor patients presenting to the ED with clinical suspicion ofnew onset or worsening HF, see below:18 to <50 >299.9 to <450.0 Grayzone: [id number] to 75 >299.9 to <900.0 other causes of>75 >299.9 to <1800.0 NT-proBNP [id number] to <50 >449.9 Positive: HF [id number] >899.9>75 >1799.9Note: Elevated NT-proBNP levels should be interpreted inthe context of other clinical information. 04/02/2025 3:21 PM EST 04/02/2025 4:11 PM EST us Julisa Hurt MD LAB BLOOD ORDERABLES Final Result [facility] [address] [place] [phone] documented in this encounter Visit Diagnoses Not on filedocumented in this encounter Additional Health Concerns Assessment Noted Time PHQ-9 Depression Total Score: 12 025 3:41 PM EST documented as of this encounter Care Teams Global Sales Director Relationship Specialty Start Date End Date Julisa Hurt MD [address] [place] [phone] PCP - General Family Medicine 12/19/24 Dr. Silverio James Childrens sees at [facility] Pediatric Neurosurgery 12/19/24 documented as of this encounter
--- OUTSIDE RECORDS SUMMARY | 2025-04-02 21:11 | XMS_ITS | Clinical Summary ---
Author Organization [facility] '[facility] Address [address] [place] [address] Care Team Providers Care City Letter Carrier Name Role Phone Román Gao MD Primary Care Provider [phone] Source Comments Please note that some or all of the patient's information could have additional privacy protections. State laws allow health care providers to render certain types of treatment to minors without parental consent. Please do not assume that this information can be shared solely by obtaining just the consent of the patient's parent/guardian. Please determine if all or part of the patient's care was rendered without parent/guardian involvement. 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 Not on file 01/07/2023 Share good news about positive changes: Not on f ile 01/07/2023 Comments No Sex and Gender Information Value Date Recorded Sex Assigned at Not on file Legal Sex Female 1:38 PM EDT Gender Identity Not on file Sexual Orientation Not on file Last Filed Vital Signs Vital Sign Reading Time Taken Comments Blood Pressure 126/87 02/07/2019 11:33 AM EDT Pulse - - Temperature - - Respiratory Rate - - Oxygen Saturation - - Inhaled Oxygen Concentration - - Weight 74.8 kg (165 lb) 02/17/2022 1:39 PM EDT Height 158.4 cm (5' 2.36 ) 02/07/2019 11:33 AM E DT Body Mass Index - - Plan of Treatment Health Maintenance Due Date Last Done Comments DTaP/TDAP/TD VACCINES (1 - Tdap) 2010 ADOLESCENT HIV SCREENING 02/06/2016 COVID-19 Vaccine (2023-2 5 season) 2024 INFLUENZA (#1) 2024 NIRSEVIMAB VACCINES UNDER 8 MONTHS Aged Out No longer eligible based on patient's age to complete this topic [place] [address] [place] [address] [place] [phone] Care Teams City Letter Carrier Relationship Specialty Start Date End Date Román Gao MD [address] [place] [address] [place] [phone] PCP - General 08/11/17
== END 2025-04-02 14:56 | disposition home or self-care (01) ==
LOC: HO.HHCL 14:55
PROVIDERS: PCP Family Medicine; Visit Provider Family Medicine
DX: G47.00 Insomnia, unspecified (principal)
CPT/HCPCS: 36415; 80076; 83880; 84403